=== PATIENT | male | born 1930 | race Asian ===

== ENCOUNTER 2016-06-18 06:14 | Day surgery (SDC) | payer MEDICARE, MEDICAID ==
[~2016-06-18] VITALS: Ht 157.5 cm; Wt 56.4 kg
[~2016-06-18 06:14] MED LIST: SODIUM CHLORIDE 0.9% 1,000 ML IV ONE
[2016-06-18] MEDS ORDERED: SODIUM CHLORIDE 0.9% 1,000 ML IV ONE (07:03)
[2016-06-18] MEDS ORDERED: LEVO500 PO (07:54)
[2016-06-18] MEDS ORDERED: TRAZ-144 PO (07:54)
[2016-06-18] MEDS ORDERED: FAMO20 PO (07:54)
[2016-06-18] MEDS ORDERED: FLUT12AE7 IH (07:54)
[2016-06-18] MEDS ORDERED: MethylPREDNISolone SOD SUCC 125 MG/2 ML VIAL IVP ONE (08:45)
[2016-06-18] MEDS ORDERED: LIDOCAINE HCL 2% 30 ML JELLY TP ONE (17:23)
[2016-06-18] MEDS ORDERED: BENZOCAINE 20% 50 MCG/SPRAY 57 GM TP ONE (17:23)
[2016-06-18] MEDS ORDERED: LIDOCAINE HCL 4% 50 ML SOLUTION TP ONE (17:23)
[2016-06-18] MEDS ORDERED: OXYGEN THERAPY IH SCH (20:00)
== END 2016-06-18 11:05 | disposition home or self-care (01) ==
LOC: SURGERY 06:14
PROVIDERS: ATTEND Internal Medicine Critical Care Medicine
DX: J38.4 Edema of larynx (principal); B37.0 Candidal stomatitis
CPT/HCPCS: 31623; 31624; 71010; 87015 ×2; 87070; 87101; 87147; 87205; 87220; J7030; 88108; 88312